=== PATIENT | female | born 1970 | race American Indian/Alaskan Native ===

== ENCOUNTER 2016-08-01 09:22 | Outpatient (CLI) | payer BC ==
--- NOTE | 2016-08-01 10:21 | Mammography Report ---
LEFT DIGITAL DIAGNOSTIC MAMMOGRAM : 08/01/16 09:22:00 CLINICAL: Recalled for asymmetry. COMPARISON:07/04/16 screening FINDINGS: ML and spot compression MLO views were performed. Satisfactory effacement of the previously described asymmetry on the spot view. The lateral view is negative. The right breast was erroneously imaged. Previously described calcifications have benign morphology and are stable. She will not be charged for a right mammogram. IMPRESSION: No mammographic evidence of malignancy. BI-RADS CATEGORY: 2 - - Benign RECOMMENDATION: Routine mammographic screening in one year. ACR BI-RADS MAMMOGRAPHIC CODES: 0 = Needs additional imaging evaluation; 1 = Negative; 2 = Benign; 3 = Probably benign; 4 = Suspicious; 5 = Malignant; 6 = Known biopsy-proven malignancy COMMENT: 1. Dense breast tissue, i.e., adenosis, fibrocystic changes, etc., may obscure an underlying neoplasm. 2. Approximately 10% of cancers are not detected with mammography. 3. A negative mammography report should not delay biopsy if a clinically suspicious mass is present. COMMENT: Patient follow-up letters are generated via our [employer] application.
== END 2016-08-01 09:23 | disposition home or self-care (01) ==
LOC: SPVWC 09:22
PROVIDERS: ATTEND Family Medicine
DX: R92.8 Other abnormal and inconclusive findings on diagnostic imaging of breast (principal)
CPT/HCPCS: G0206-LT